=== PATIENT | female | born 1955 | race Caucasian/White ===

== ENCOUNTER 2023-05-01 10:56 | Outpatient (CLI) | payer MEDICARE ==
[2023-05-01] MEDS ORDERED: Iopamidol 370 76% 100 ML VIAL ONE (13:54)
== END 2023-05-01 10:57 | disposition home or self-care (01) ==
LOC: CT 10:56
PROVIDERS: ATTEND Family Medicine
DX: R10.12 Left upper quadrant pain (principal); R10.32 Left lower quadrant pain; K55.059 Acute (reversible) ischemia of intestine, part and extent unspecified; N26.1 Atrophy of kidney (terminal); R11.14 Bilious vomiting; K55.9 Vascular disorder of intestine, unspecified; R11.0 Nausea; E27.8 Other specified disorders of adrenal gland; R91.1 Solitary pulmonary nodule; I70.0 Atherosclerosis of aorta; I77.4 Celiac artery compression syndrome; I70.1 Atherosclerosis of renal artery; K55.1 Chronic vascular disorders of intestine; Z90.49 Acquired absence of other specified parts of digestive tract; Z90.710 Acquired absence of both cervix and uterus
CPT/HCPCS: 74174; Q9967

== ENCOUNTER 2024-05-19 12:31 | Outpatient (CLI) | payer MEDICARE | END 2024-05-19 12:32 | disposition home or self-care (01) | LOC: SCSRAD 12:31 | PROVIDERS: ATTEND Family Medicine | DX: M25.511 Pain in right shoulder (principal); M19.011 Primary osteoarthritis, right shoulder ==

== ENCOUNTER 2024-05-21 12:28 | Outpatient (CLI) | payer MEDICARE | END 2024-05-21 12:29 | disposition home or self-care (01) | LOC: BICCT 12:28 | PROVIDERS: ATTEND Family Medicine | DX: Z12.2 Encounter for screening for malignant neoplasm of respiratory organs (principal); F17.210 Nicotine dependence, cigarettes, uncomplicated; R91.8 Other nonspecific abnormal finding of lung field | CPT/HCPCS: 71271 ==

== ENCOUNTER 2024-11-03 22:21 | Inpatient (IN) | payer MEDICARE ==
[2024-11-04] MEDS ORDERED: Acetaminophen 650 MG Suppository PR PRN (00:03)
[2024-11-04] MEDS ORDERED: Ondansetron PF 4 MG/2 ML Vial IVP PRN (00:03)
[2024-11-04] MEDS ORDERED: Acetaminophen 325 MG TAB PO PRN (00:03)
[2024-11-04] MEDS ORDERED: Calcium Carbonate 500 MG ChewTAB PO PRN (00:03)
[2024-11-04] MEDS ORDERED: Ondansetron ODT 4 MG TAB PO PRN (00:03)
[2024-11-04 00:33] VITALS: BMI 32.8
[2024-11-04] MEDS: Ketorolac Tromethamine 30 MG (1 mL) VIAL IVP PRN (01:12)
[2024-11-04] MEDS: Lactated Ringer's 1,000 ML IV SCH (01:13)
[2024-11-04] MEDS: Morphine 2 MG/ML VIAL SLOW IVP PRN (02:32)
[2024-11-04] MEDS: Ketorolac Tromethamine 30 MG (1 mL) VIAL IVP SCH (03:40)
[2024-11-04 06:19] LABS: #Basophils 0.03 10x3/uL (0.0-0.2); %Basophils 0.2 % (0.0-1.0); %Eosinophils 0.5 % (0.0-10.0); %Lymphocytes 10.1 % (21.0-51.0); %Monocytes 7.4 % (0.0-10.0); %Neutrophils 81.3 % (42.0-75.0); Hemoglobin 11.9 g/dL (12.0-16.0); Mean Corpuscular HGB CONC 37.2 g/dL (32.0-36.0); Mean Corpuscular Hemoglobin 29.8 pg (27.0-31.0); Mean Corpuscular Volume 80.2 fL (78.0-98.0); Mean Platelet Volume 9.5 fL (7.4-10.4); Platelet Count 420 10x3/uL (130-400); RBC Distribution Width 13.6 % (11.5-14.5); Red Blood Cell (RBC) Count 3.99 mill/uL (4.20-5.40)
[2024-11-04 06:53] LABS: ALT (SGPT) 111 U/L (Less than 34); AST (SGOT) 220 U/L (11-34); Albumin 3.3 g/dL (3.1-4.5); Alkaline Phosphatase 144 U/L (40-110); Anion Gap 14 mmol/L (10-20); BUN (Urea Nitrogen) 11 mg/dL (9.8-20.1); Bilirubin, Total 1.2 mg/dL (0.3-1.2); Calc. Creatinine Clearance 110 mL/min (70-130); Carbon Dioxide 18 mmol/L (23-31); Chloride 103 mmol/L (98-107); Estimated GFR 97; Globulin 3.5 g/dL (2.4-3.5); Glucose 120 mg/dL (80-115); Lipase 71 U/L (8-78); Potassium 3.4 mmol/L (3.5-5.1); Protein, Total 6.8 g/dL (5.8-8.1); Sodium 132 mmol/L (136-145)
[2024-11-04] MEDS: Famotidine 20 MG TAB PO SCH (08:10)
[2024-11-04] MEDS: Famotidine/PF 20 mg/2ml Vial SLOW IVP SCH (08:10)
[2024-11-04] MEDS ORDERED: Metoclopramide HCl 10 MG (2 mL) VIAL IVP PRN (11:55)
[2024-11-04] MEDS: Amlodipine 5 MG TAB PO SCH (11:59)
[2024-11-04] MEDS: Sodium Chloride 0.9% 1,000 ML IV SCH ×3 (12:16→22:47)
[2024-11-04] MEDS: Lidocaine 4% Patch TD SCH (14:30)
[2024-11-05] MEDS: Transdermal LIDOCAINE Patch Removal TOP SCH (02:18)
[2024-11-05 07:08] LABS: #Basophils 0.08 10x3/uL (0.0-0.2); %Basophils 0.7 % (0.0-1.0); %Eosinophils 2.6 % (0.0-10.0); %Lymphocytes 21.4 % (21.0-51.0); %Monocytes 8.4 % (0.0-10.0); %Neutrophils 66.5 % (42.0-75.0); Hematocrit 30.9 % (36.0-47.0); Hemoglobin 11.5 g/dL (12.0-16.0); Mean Corpuscular HGB CONC 37.2 g/dL (32.0-36.0); Mean Corpuscular Hemoglobin 30.3 pg (27.0-31.0); Mean Corpuscular Volume 81.3 fL (78.0-98.0); Platelet Count 395 10x3/uL (130-400)
[2024-11-05 07:24] LABS: ALT (SGPT) 59 U/L (Less than 34); AST (SGOT) 38 U/L (11-34); Alkaline Phosphatase 116 U/L (40-110); Anion Gap 15 mmol/L (10-20); BUN (Urea Nitrogen) 9 mg/dL (9.8-20.1); Bilirubin, Total 0.4 mg/dL (0.3-1.2); Calc. Creatinine Clearance 121 mL/min (70-130); Calcium 8.6 mg/dL (7.8-10.44); Carbon Dioxide 16 mmol/L (23-31); Cardiac Risk 3.3 (Less than 4.5); Chloride 111 mmol/L (98-107); Cholesterol 154 mg/dl (< 200 Desired); Estimated GFR 99; Globulin 3.4 g/dL (2.4-3.5); Glucose 77 mg/dL (80-115); HDL Cholesterol 46 mg/dL (>60 Neg Risk); LDL Cholesterol, Calculated 94 mg/dL; Lipase 22 U/L (8-78); Potassium 3.7 mmol/L (3.5-5.1); Protein, Total 6.4 g/dL (5.8-8.1); Sodium 138 mmol/L (136-145); Triglycerides 72 mg/dL (Less than 150)
[2024-11-05] MEDS: Ketorolac Tromethamine 30 MG (1 mL) VIAL IVP PRN (08:19)
[2024-11-06] MEDS: Aspirin Chewable 81 MG TAB PO SCH (09:59)
[2024-11-06] MEDS: Amlodipine 5 MG TAB PO SCH (09:59)
[2024-11-06 10:43] LABS: #Basophils 0.08 10x3/uL (0.0-0.2); %Basophils 0.9 % (0.0-1.0); %Lymphocytes 25.8 % (21.0-51.0); %Monocytes 7.8 % (0.0-10.0); %Neutrophils 63.1 % (42.0-75.0); Hematocrit 31.9 % (36.0-47.0); Hemoglobin 11.7 g/dL (12.0-16.0); Mean Corpuscular HGB CONC 36.7 g/dL (32.0-36.0); Mean Corpuscular Hemoglobin 29.5 pg (27.0-31.0); Mean Corpuscular Volume 80.4 fL (78.0-98.0); Mean Platelet Volume 9.5 fL (7.4-10.4); Platelet Count 460 10x3/uL (130-400); RBC Distribution Width 13.6 % (11.5-14.5); Red Blood Cell (RBC) Count 3.97 mill/uL (4.20-5.40)
[2024-11-06 11:18] LABS: ALT (SGPT) 42 U/L (Less than 34); AST (SGOT) 29 U/L (11-34); Albumin 3.3 g/dL (3.1-4.5); Alkaline Phosphatase 110 U/L (40-110); Anion Gap 14 mmol/L (10-20); BUN (Urea Nitrogen) 9 mg/dL (9.8-20.1); Bilirubin, Total 0.3 mg/dL (0.3-1.2); Calc. Creatinine Clearance 121 mL/min (70-130); Calcium 9.1 mg/dL (7.8-10.44); Carbon Dioxide 19 mmol/L (23-31); Chloride 108 mmol/L (98-107); Estimated GFR 99; Globulin 3.6 g/dL (2.4-3.5); Glucose 109 mg/dL (80-115); Potassium 3.9 mmol/L (3.5-5.1); Protein, Total 6.9 g/dL (5.8-8.1); Sodium 137 mmol/L (136-145)
[2024-11-07 07:08] LABS: ALT (SGPT) 31 U/L (Less than 34); AST (SGOT) 19 U/L (11-34); Alkaline Phosphatase 96 U/L (40-110); Anion Gap 13 mmol/L (10-20); BUN (Urea Nitrogen) 7 mg/dL (9.8-20.1); Bilirubin, Total 0.3 mg/dL (0.3-1.2); Calc. Creatinine Clearance 119 mL/min (70-130); Carbon Dioxide 21 mmol/L (23-31); Chloride 108 mmol/L (98-107); Estimated GFR 99; Globulin 3.3 g/dL (2.4-3.5); Glucose 83 mg/dL (80-115); Potassium 3.7 mmol/L (3.5-5.1); Protein, Total 6.3 g/dL (5.8-8.1); Sodium 138 mmol/L (136-145)
[2024-11-07 07:46] LABS: #Basophils 0.07 10x3/uL (0.0-0.2); %Basophils 0.9 % (0.0-1.0); %Eosinophils 4.3 % (0.0-10.0); %Lymphocytes 28.1 % (21.0-51.0); %Monocytes 9.3 % (0.0-10.0); %Neutrophils 57.5 % (42.0-75.0); Hematocrit 29.8 % (36.0-47.0); Hemoglobin 11.2 g/dL (12.0-16.0); Mean Corpuscular HGB CONC 38.1 g/dL (32.0-36.0); Mean Corpuscular Hemoglobin 30.1 pg (27.0-31.0); Mean Corpuscular Volume 79.1 fL (78.0-98.0); Mean Platelet Volume 10.2 fL (7.4-10.4); Platelet Count 446 10x3/uL (130-400); RBC Distribution Width 13.4 % (11.5-14.5); Red Blood Cell (RBC) Count 3.82 mill/uL (4.20-5.40)
[2024-11-07] MEDS: Sodium Chloride 0.9% 1,000 ML IV SCH (09:05)
[2024-11-07 11:15] VITALS: BP 159/80; TEMP 98.4
== END 2024-11-07 11:56 | disposition home or self-care (01) | DRG 439 ==
LOC: T4-B 22:21 → OBSVTOIN 11-04 14:55
PROVIDERS: ADMIT Student in an Organized Health Care Education/Training Program; ATTEND Family Medicine
DX: K85.90 Acute pancreatitis without necrosis or infection, unspecified (principal); E87.1 Hypo-osmolality and hyponatremia; E87.20 Acidosis, unspecified; E87.6 Hypokalemia; R74.01 Elevation of levels of liver transaminase levels; I10 Essential (primary) hypertension; K86.1 Other chronic pancreatitis; F17.210 Nicotine dependence, cigarettes, uncomplicated; Z90.49 Acquired absence of other specified parts of digestive tract; Z88.5 Allergy status to narcotic agent
CPT/HCPCS: 36415; 74176; 80053; 80061; 83690; 85025; 96374; 96375; 96376; G0378; J1885; J2272; J3490; J7030; J7120

== ENCOUNTER 2025-06-01 10:19 | Outpatient (CLI) | payer MEDICARE | END 2025-06-01 10:20 | disposition home or self-care (01) | LOC: BICCT 10:19 | PROVIDERS: ATTEND Family Medicine | DX: Z12.2 Encounter for screening for malignant neoplasm of respiratory organs (principal); F17.210 Nicotine dependence, cigarettes, uncomplicated; R91.1 Solitary pulmonary nodule | CPT/HCPCS: 71271 ==